=== PATIENT | male | born 1985 | race African-American/Black ===

== ENCOUNTER 2019-03-30 20:49 | Emergency (ER) | payer BC ==
[~2019-03-30] VITALS: Ht 177.8 cm; Wt 140.6 kg
[~2019-03-30 20:49] MED LIST: TYLENOL325 MG PO
[2019-03-30 22:52] LABS: ABSOLUTE NEUTROPHILS 9.4 thou/uL (1.4-8.2); BASOPHILS 0.6 % (0.0-2.0); EOSINOPHILS 0.5 % (0.0-3.0); HEMOGLOBIN 14.6 gm/dL (14.0-18.0); LYMPHOCYTES 15.5 % (24.0-44.0); MCH 30.5 pg (26.0-34.0); MCV 89.7 fL (80.0-100.0); MONOCYTES 6.2 % (1.0-8.0); PLATELET COUNT 207 thou/uL (150-400); POLYS 77.2 % (36.0-66.0); RDW 13.5 % (10.5-14.5); WBC 12.2 thou/uL (4.0-11.0)
[2019-03-30 22:59] LABS: ANION GAP 9 mmol/L (7-16); BUN 11 mg/dL (7-18); CALCIUM 9.9 mg/dL (8.5-10.1); CHLORIDE 103 mmol/L (98-107); CO2 27 mmol/L (21-32); CREATININE 1.1 mg/dL (0.7-1.3); GLUCOSE 93 mg/dL (74-106); POTASSIUM 3.7 mmol/L (3.5-5.1); SODIUM 139 mmol/L (136-145)
[2019-03-30 23:07] LABS: TROPONIN-I <0.06 ng/mL (<0.06)
[2019-03-30 23:51] VITALS: BP 127/72
--- NOTE | 2019-03-31 08:05 | EKG ---
[address] [place] [address] ELECTROCARDIOGRAM REPORT Name: DEEJAY LEE Room #: DEP [facility]ENTERShahzad[facility] [id number] ������������������ Admission: 03/30/19 ������������������ Attend Phys: Discharge: 03/30/19 ������������������ Date of : 83 Report #: [id number] ����������������������������������������������������������������� [id number] THIS REPORT FOR: //name// [facility] ED Test Date: 2019-03-30 Test Time: 22:52:49 Pat Name: DEEJAY LEE Department: Room: Gender: Peel [employer] Tender: [facility] : 1985 Requested By: Luh Sanderson Order Number: [id number] MD: Jayy Giordano Measurements Intervals Gordon Rate: 80 P: -1 CT: 146 QRS: 31 QRSD: 86 T: 20 QT: 359 QTc: 415 Interpretive Statements Sinus arrhythmia Normal tracing No previous ECG available for comparison Electronically Signed On 03-31-2019 8:05:25 CDT by Jayy Giordano [email or web address] ��������������������������������������������� <ELECTRONICALLY SIGNED> ���������������������������������������� By: Jayy Giordano MD, [facility] ��������������������������������������������� 03/31/19 0805 [id number] 2252 Jayy Giordano MD, FACC /EPI
== END 2019-03-30 23:53 | disposition home or self-care (01) ==
LOC: ER 20:49
PROVIDERS: Student in an Organized Health Care Education/Training Program
DX: G56.01 Carpal tunnel syndrome, right upper limb (principal); Z88.6 Allergy status to analgesic agent; Z91.013 Allergy to seafood